=== PATIENT | male | born 2005 | race Two or more races ===

== ENCOUNTER 2024-01-10 01:18 | Emergency (ER) | payer OTHER ==
[~2024-01-10] VITALS: Ht 177.8 cm; Wt 90.7 kg
[2024-01-10] MEDS ORDERED: CEFTRIAXONE SODIUM 1,000 MG VIAL IM STA (03:15)
[2024-01-10] MEDS ORDERED: GUAIFENESIN/DEXTROMETHORPHAN 100 MG/5 ML ML PO STA (03:15)
== END 2024-01-10 03:23 | disposition home or self-care (01) ==
LOC: ER 01:18 → EMR PED 01:40
DX: J03.90 Acute tonsillitis, unspecified (principal)